=== PATIENT | female | born 1985 | race Caucasian/White ===

== ENCOUNTER → 2023-02-09 15:09 | Outpatient (BNVA) | payer OTHER, SELFPAY | PROVIDERS: PCP Family Medicine Adult Medicine; Visit Provider Family Medicine Adult Medicine | DX: R22.0 Localized swelling, mass and lump, head (principal) | CPT/HCPCS: 88304 ==

== ENCOUNTER → 2023-04-23 10:27 | Outpatient (BNVA) | payer OTHER, SELFPAY | PROVIDERS: PCP Family Medicine Adult Medicine; Visit Provider Emergency Medicine | DX: J02.9 Acute pharyngitis, unspecified (principal); Z20.828 Contact with and (suspected) exposure to other viral communicable diseases | CPT/HCPCS: 87071; 87400; 87880 ==

== ENCOUNTER → 2024-01-03 12:52 | Outpatient (BNVA) | payer OTHER, SELFPAY | PROVIDERS: PCP Family Medicine Adult Medicine; Visit Provider Family Medicine | DX: F32.A Depression, unspecified (principal); N76.0 Acute vaginitis; F32.0 Major depressive disorder, single episode, mild | CPT/HCPCS: 87070; 87205 ==

== ENCOUNTER 2025-01-17 16:28 | Outpatient (CLI) | payer OTHER, SELFPAY | END 2025-01-17 16:29 | disposition home or self-care (01) | LOC: LAB 16:28 | PROVIDERS: PCP Family Medicine Adult Medicine; Visit Provider Nurse Practitioner Women's Health | DX: R79.89 Other specified abnormal findings of blood chemistry (principal) | CPT/HCPCS: 36415; 81025; 84144; 84702 ==

== ENCOUNTER → 2025-02-22 10:10 | Outpatient (BNVA) | payer OTHER, SELFPAY | PROVIDERS: PCP Family Medicine Adult Medicine; Visit Provider Obstetrics & Gynecology | DX: O09.529 Supervision of elderly multigravida, unspecified trimester (principal); O09.899 Supervision of other high risk pregnancies, unspecified trimester; Z3A.00 Weeks of gestation of pregnancy not specified | CPT/HCPCS: 80307; 82950; 84315; 84443; 85025; 86592; 86762; 86803; 86850; 86900; 87086; 87340; 87806 ==